=== PATIENT | female | born 1940 | race Caucasian/White ===

== ENCOUNTER → 2017-02-26 13:47 | Outpatient (CLI) | payer MEDICARE, OTHER ==
[2014-09-16 14:22] VITALS: BMI 26.2
[~2017-02-26 13:47] MED LIST: COZAAR100 MG PO; FERROUS SULFAT325 MG PO; GLUCOPHAGE850 MG PO; LIPITOR20 MG PO; PLAVIX75 MG PO; PRILOSEC20 MG PO; VITAMIN D31000 UNIT PO
== END | disposition home or self-care (01) ==
LOC: D.RAD 13:00
PROVIDERS: Anesthesiology
DX: R05 Cough (principal)

== ENCOUNTER 2017-03-26 07:39 | Day surgery (SDC) | payer MEDICARE, OTHER ==
[~2017-03-26] VITALS: Ht 157.5 cm; Wt 62.3 kg
--- NOTE | ~2017-03-26 | OP ---
PATIENT NAME: MAG BELL MEDICAL RECORD: [id number] :42 LOCATION:[facility] ADMISSION DATE: SURGEON: HECTOR LI DO DATE OF OPERATION: 03/26/2017 PROCEDURE: EGD with biopsies. 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 pylori gastritis, heartburn, burping. SCOPE: Olympus video gastroscope. MEDICATIONS: Propofol 230 mg IV per anesthesia. ESTIMATED BLOOD LOSS: Minimal. COMPLICATIONS: None. FINDINGS: Informed consent was given. The patient was made comfortable with the above medication. After reaching an adequate level of sedation by slow IV push, the patient was placed on her left side. The endoscope was then advanced under direct visualization through the mouth to the second portion of the duodenum. The upper, middle, and lower thirds of the esophagus appeared normal. At the GE junction, there was some evidence of reflux esophagitis and probable Gomez's esophagus. The Gomez's segments spanned approximately 1 cm. There were no obvious abnormalities to indicate dysplasia or any sites of cancers changes. Four quadrant biopsies were taken successfully. The endoscope was advanced into the stomach and retroflexed to view the cardia where a small sliding hiatal hernia was present. Throughout the fundus and body of the stomach, the mucosa appeared atrophic. There were a few scattered benign appearing fundic gland type polyps. In the antrum and prepyloric region, there was some streaky erythema and some granular changes consistent with possible gastritis. Random biopsies were taken from the antrum and the body to submit for histology and to rule out H. pylori. There was a single ulcer visualized in the antral area which was superficial and nonbleeding. The endoscope was advanced through the pylorus into the duodenum where the bulb and second portion of the duodenum also revealed some atrophic mucosa. Biopsies were taken to submit for histology. The endoscope was then withdrawn from the patient. The patient tolerated the procedure well and there were no complications. IMPRESSION: 1. Reflux esophagitis. 2. Short segment Gomez's spanning 1 cm with biopsies taken. 3. Small sliding hiatal hernia. 4. Granularity and erythema in the stomach as well as atrophic changes consistent with possible gastritis. Biopsies were taken. 5. Benign appearing fundic gland type polyps. 6. Single superficial gastric ulcer which was nonbleeding. 7. Atrophy of the duodenal mucosa with biopsies taken. PLAN AND RECOMMENDATIONS: 1. Discharge home when recovery parameters are met. 2. Follow up biopsy specimen results. 3. Continue current medications. 4. Consider using an H2 rosy in the evening along with PPI in a.m. OPERATIVE REPORT [id number] MAG BELL Currently, Mag is using PPI twice daily. 5. Consider Carafate with meals for indigestion symptoms. 6. Further recommendations pending results of biopsies. TRANSINT:[id number] Voice Confirmation ID: [id number] DOCUMENT ID: [id number] HECTOR LI DO CC: [id number] DICTATION DATE: 03/26/17913 INSURANCE COORDINATOR: 03/26/17 1625 [facility] 03/26/17 [id number] [place] [address]
[2017-03-26 08:10] VITALS: Ht 157.5 cm; Wt 62.3 kg
[2017-03-26 08:49] LABS: HEMATOCRIT 43.8 % (36.0-48.0); HEMOGLOBIN 14.6 g/dL (12-16); MCH 29.7 pg (26.0-34.0); MCHC 33.3 g/dL (31.0-37.0); MEAN PLATELET VOLUME 9.9 fL (7.4-10.4); RBC 4.92 10x6/uL (4.00-5.40); RDW 13.8 % (11.5-14.5); WBC 6.4 10x3/uL (4.8-10.8)
[2017-03-26] MEDS ORDERED: CARAFATE1 G PO (10:50)
--- NOTE | 2017-03-26 15:31 | NUR ---
1105 DRESSED. AWAKE & ALERT. GIVEN DISCHARGE INFORMATION INCLUDING: RX: CARAFATE 1 GM, MED REC., SHEET LISTING NSAIDS & BLOOD THINNERS TO AVOID FOR 14 DAYS, REFLUX ESOPHAGITIS HANDOUTS, & D/C INSTRUCTIONS SHEET POST ENDOSCOPIC PROCEDURES. PT VOICED UNDERSTANDING. TO PRIVATE CAR PER WHEELCHAIR BY VOLUNTEER. HOME WITH , NICK BELL. Matias MYLES R.N.
== END 2017-03-26 11:05 | disposition home or self-care (01) ==
LOC: D.OPS 07:39
PROVIDERS: Anesthesiology
DX: K22.70 Barrett's esophagus without dysplasia (principal); K21.0 Gastro-esophageal reflux disease with esophagitis; J44.9 Chronic obstructive pulmonary disease, unspecified; I10 Essential (primary) hypertension; E11.9 Type 2 diabetes mellitus without complications; K25.9 Gastric ulcer, unspecified as acute or chronic, without hemorrhage or perforation; Z01.812 Encounter for preprocedural laboratory examination

== ENCOUNTER 2017-12-24 05:45 | Day surgery (SDC) | payer MEDICARE, OTHER ==
[~2017-12-24] VITALS: Ht 160 cm; Wt 62.7 kg
--- NOTE | ~2017-12-24 | OP ---
PATIENT NAME: REGI BELL MEDICAL RECORD: [id number] :42 LOCATION:[facility] ADMISSION DATE: SURGEON: HECTOR LI DO DATE OF OPERATION: 12/24/2017 PROCEDURE: Colonoscopy with polypectomy. INDICATIONS FOR PROCEDURE: Personal history of colon polyps, right lower quadrant abdominal pain, steatosis of liver. Previous colonoscopy was August of 2014, which revealed poor preparation in the area of the cecum and proximal ascending colon as well as adhesions and hemorrhoids. SCOPE: Mobi-Moto video pediatric colonoscope. MEDICATIONS: Propofol 350 mg IV per anesthesia. WITHDRAWAL TIME: 12 minutes. ESTIMATED BLOOD LOSS: Minimal. COMPLICATIONS: None. FINDINGS: Informed consent was given. The patient was made comfortable with the above medication. After reaching an adequate level of sedation by slow IV push, the patient was placed on her left side. A digital rectal examination revealed some tags from previous hemorrhoids. The endoscope was then advanced under direct visualization through the rectum to the cecum with visualization of the appendiceal orifice and ileocecal valve. The scope was slowly withdrawn and mucosa was carefully examined. The prep quality was good. In the cecum, there was a single benign appearing polyp, which was sessile. It measured approximately 6 mm in diameter and was located just along the appendiceal orifice. Cold forceps biopsies were taken and the polyp was completely removed in piecemeal resection with cauterization. There were 3 remaining polyps, all located in the sigmoid colon, which were benign-appearing and sessile. They ranged in size from 3-5 mm in diameter. They were all removed using hot forceps in 1 piece and completely retrieved. There were no diverticula or other abnormalities visualized on today's examination. The terminal ileum was briefly intubated and appeared normal. Retroflexion was performed in the rectum with visualization of grade II internal hemorrhoids without active bleeding. The endoscope was then withdrawn from the patient. The patient tolerated the procedure well and there were no complications. IMPRESSION: 1. Multiple polyps removed from the cecum and sigmoid colon as described above. 2. Grade II internal hemorrhoids. PLAN AND RECOMMENDATIONS: 1. Discharge home when recovery parameters are met. 2. Follow up biopsy specimen results. 3. Continue current diet. 4. Continue current medications. 5. Trial of dicyclomine 10 mg 1-2 tablets up to 2 times daily as needed for abdominal pain or abdominal cramps. 6. Consider gynecologic evaluation based on the location of the patient's pain, which is in the very low right lower quadrant and near the suprapubic region at OPERATIVE REPORT [id number] REGI BELL its most severe point. 7. Recall colonoscopy in 3-5 years. TRANSINT:[id number] Voice Confirmation ID: [id number] DOCUMENT ID: [id number] HECTOR LI DO at 0911 CC: [id number] DICTATION DATE: 12/24/17 0851 TRAVELER CHANGER: 12/24/17 1053 [facility] 12/24/17 [facility] [address] [place] [address]
[~2017-12-24 05:45] MED LIST changes: +CARAFATE1 G PO
[2017-12-24 06:12] LABS: BASOPHILS 0.5 % (0-2); EOSINOPHILS 4.1 % (0-7); HEMOGLOBIN 14.2 g/dL (12-16); IMMATURE GRANULOCYTES 0.3 % (0-5); LYMPHOCYTES 31.1 % (15-50); MCH 29.2 pg (26.0-34.0); MCHC 33.8 g/dL (31.0-37.0); MCV 86.4 fL (80.0-100.0); MEAN PLATELET VOLUME 9.3 fL (7.4-10.4); RBC 4.86 10x6/uL (4.00-5.40); RDW 12.9 % (11.5-14.5); WBC 6.3 10x3/uL (4.8-10.8)
[2017-12-24 06:16] LABS: PLATELET COUNT 275 10x3/uL (130-400)
[2017-12-24] MEDS ORDERED: COREG6.25 MG (06:28)
[2017-12-24 06:36] VITALS: Ht 160 cm; Wt 62.7 kg
[2017-12-24 06:37] LABS: ANION GAP 19.7 mmol/L (8-16); CALCIUM 9.5 mg/dL (8.5-10.1); CARBON DIOXIDE 21.7 mmol/L (21.0-32.0); CREATININE - SERUM 1.1 mg/dL (0.6-1.3); POTASSIUM - SERUM 3.4 mmol/L (3.5-5.1)
== END 2017-12-24 09:45 | disposition home or self-care (01) ==
LOC: D.OPS 05:45
PROVIDERS: Anesthesiology
DX: R10.11 Right upper quadrant pain (principal); K64.1 Second degree hemorrhoids; D12.0 Benign neoplasm of cecum; D12.5 Benign neoplasm of sigmoid colon; I10 Essential (primary) hypertension; E11.9 Type 2 diabetes mellitus without complications; K21.9 Gastro-esophageal reflux disease without esophagitis; J44.9 Chronic obstructive pulmonary disease, unspecified; Z01.812 Encounter for preprocedural laboratory examination